=== PATIENT | female | born 1980 | race Caucasian/White ===

== ENCOUNTER → 2016-09-09 | Outpatient (CLI) | payer OTHER ==
--- NOTE | 2016-09-09 09:58 | MM ---
Reason for exam: screening (asymptomatic). Baseline mammogram. History: Patient history of other cancer. Family history of breast cancer in maternal aunt at age 50. Took hormonal contraceptives beginning at age 18. Physical Findings: Nurse did not find any significant physical abnormalities on exam. MG Screening Mammo w CAD Bilateral CC and MLO view(s) were taken. The breast tissue is heterogeneously dense. This may lower the sensitivity of mammography. Finding: There are typically benign round calcifications in the left breast. Asymmetric breast tissue in the left breast. There is no discrete abnormality. These results were verbally communicated with the patient and result sheet given to the patient on 09/09/16. ASSESSMENT: Benign, BI-RAD 2 RECOMMENDATION: Routine screening mammogram of both breasts at age 41.
== END | disposition home or self-care (01) ==
LOC: RADMAMWWP 08:35
PROVIDERS: ATTEND Obstetrics & Gynecology
DX: Z12.31 Encounter for screening mammogram for malignant neoplasm of breast (principal); Z80.3 Family history of malignant neoplasm of breast

== ENCOUNTER → 2016-10-28 | Outpatient (CLI) | payer OTHER ==
--- NOTE | 2016-10-28 13:53 | US ---
EXAMINATION TYPE: US thyroid st tissue head/neck DATE OF EXAM: 10/28/2016 COMPARISON: 04/26/2016 CLINICAL HISTORY: C73 MALIGNANT NEOPLASM THYROID GLAND; Left thyroidectomy 2016 GLAND SIZE: Right Lobe: 4.6 x 1.7 x 1.2 cm Overall Parenchyma: homogenous Left Lobe: Possible residual tissue as noted by radiologist on prior US = 2.6 x 0.6 x 0.5 cm Isthmus Thickness: 0.3 cm NODULES RIGHT: # of nodules measured on right: 0 LEFT: # of nodules measured on left: 0 ISTHMUS: # of nodules measured in the isthmus: 0 Bilateral neck scanned, no evidence of lymphadenopathy. IMPRESSION: Intermediate area of echogenicity along the left thyroid bed has a somewhat planar appearance and may be related to indeterminate soft tissue rather than residual thyroid tissue or mass. Given the patie nt's history recommend CT of the neck with contrast.
== END | disposition home or self-care (01) ==
LOC: RADUSWWP 12:14
PROVIDERS: ATTEND Internal Medicine Endocrinology, Diabetes & Metabolism
DX: E07.89 Other specified disorders of thyroid (principal); C73 Malignant neoplasm of thyroid gland
CPT/HCPCS: 76536; 84443

== ENCOUNTER → 2017-09-24 | Outpatient (CLI) | payer OTHER ==
--- NOTE | 2017-09-24 17:33 | US ---
EXAMINATION TYPE: US thyroid st tissue head/neck DATE OF EXAM: 09/24/2017 COMPARISON: 10/28/2016 CLINICAL HISTORY: Z85.850,R52 NECK PAIN,HX THYROID CA. Left thyroidectomy 1 year ago, pain on the lef t neck x 1 month, more so at clavicle, no palp I assessed the left side of neck at area of pain and saw no residual tissue at left thyroid bed and n o abnormality noted supraclavicular. Previous imaging believed residual tissue was on the left and Dr Giordano attempted bx in office but unabl e to retrieve thyroid cells on potential residual tissue IMPRESSION: The left side of the neck was scanned and no residual thyroid tissue identified. This pa tient has had a left thyroid lobectomy. No adverse change compared to old exam.
== END | disposition home or self-care (01) ==
LOC: RADUSWWP 16:54
PROVIDERS: ATTEND Family Medicine
DX: R52 Pain, unspecified (principal); Z98.890 Other specified postprocedural states; Z85.850 Personal history of malignant neoplasm of thyroid
CPT/HCPCS: 76536

== ENCOUNTER → 2017-10-31 | Outpatient (CLI) | payer OTHER ==
--- NOTE | 2017-10-31 17:47 | XR ---
EXAMINATION TYPE: XR cervical spine comp DATE OF EXAM: 10/31/2017 COMPARISON: NONE HISTORY: Clavicle pain TECHNIQUE: 5 views FINDINGS: There is mild straightening of the upper cervical spine. Disc spaces are normal. Posterior elements are intact. Neural foramina appear widely patent. Atlantoaxial facet joint is normal. There are no cervical ribs. IMPRESSION: Negative cervical spine exam.
--- NOTE | 2017-10-31 17:48 | XR ---
EXAMINATION TYPE: XR chest 2V DATE OF EXAM: 10/31/2017 COMPARISON: NONE HISTORY: Clavicle pain TECHNIQUE: Frontal and lateral views of the chest are obtained. FINDINGS: Heart and mediastinum are normal. Lungs are clear. Diaphragm is normal. Bony thorax appear s normal. IMPRESSION: Normal chest
== END | disposition home or self-care (01) ==
LOC: RADXRMAIN 17:05
PROVIDERS: ATTEND Family Medicine
DX: R07.89 Other chest pain (principal); M54.2 Cervicalgia
CPT/HCPCS: 71046; 72050

== ENCOUNTER → 2018-04-24 | Outpatient (CLI) | payer OTHER ==
--- NOTE | 2018-04-24 09:32 | US ---
EXAMINATION TYPE: US thyroid st tissue head/neck DATE OF EXAM: 04/24/2018 COMPARISON: US CLINICAL HISTORY: C73 MALIGNANT NEOPLASM OF THYROID GLAND. H/O thyroid CA left side with left thyroid ectomy GLAND SIZE: Right Lobe: 3.9 x 1.4 x 2.0 cm Overall Parenchyma: homogenous Isthmus Thickness: 0.3 cm NODULES RIGHT: # of nodules measured on right: 1 1. 0.4 X 0.3 x 0.3 cm hypoechoic solid nodule at the mid pole with poorly defined margins; This no dule is wider than tall and shows intranodular vascularity. Prior size: Not visualized on prior Bilateral neck scanned, no evidence of lymphadenopathy, normal appearing lymph node right lateral nec k. Small right thyroid nodule, left thyroid bed wnl. IMPRESSION: Solitary subcentimeter solid right thyroid nodule in this patient with a left thyroidectomy. No left- sided local adenopathy. Nonenlarged 4 mm short axis lymph node is seen adjacent to the right lobe of the thyroid gland.
== END ==
LOC: RADUSWWP 07:55
PROVIDERS: ATTEND Internal Medicine Endocrinology, Diabetes & Metabolism
DX: C73 Malignant neoplasm of thyroid gland (principal); Z90.89 Acquired absence of other organs; R59.0 Localized enlarged lymph nodes
CPT/HCPCS: 36415; 76536; 84443

== ENCOUNTER → 2018-10-27 | Outpatient (CLI) | payer OTHER | END | disposition home or self-care (01) | LOC: LABWHC1 11:16 | PROVIDERS: ATTEND Internal Medicine Endocrinology, Diabetes & Metabolism | DX: C73 Malignant neoplasm of thyroid gland (principal) | CPT/HCPCS: 36415; 84443 ==

== ENCOUNTER → 2018-10-27 | Outpatient (CLI) | payer OTHER ==
--- NOTE | 2018-10-27 11:30 | US ---
EXAMINATION TYPE: US thyroid st tissue head/neck DATE OF EXAM: 10/27/2018 COMPARISON: Multiple ultrasounds. Last one on 04/24/18 CLINICAL HISTORY: C73 malig neoplasm of the thyroid. GLAND SIZE: Right Lobe: 4.1 x 1.5 x 1.4 cm Overall Parenchyma: homogenous Left Lobe: Surgically absent NODULES RIGHT: # of nodules measured on right: 1 1. 0.4 X 0.3 x 0.3 cm hypoechoic solid nodule at the mid pole with poorly defined margins; . This nodule is wider than tall and shows intranodular vascularity. Prior size: 0.4 X 0.3 x 0.3 cm LEFT: # of nodules measured on left: 0 ISTHMUS: # of nodules measured in the isthmus: 0 Bilateral neck scanned, no evidence of lymphadenopathy. IMPRESSION: Stable solitary 4 mm right thyroid nodule. Surgical absence of the left thyroid lobe.
== END | disposition home or self-care (01) ==
LOC: RADUSWWP 10:57
PROVIDERS: ATTEND Internal Medicine Endocrinology, Diabetes & Metabolism
DX: C73 Malignant neoplasm of thyroid gland (principal); E04.1 Nontoxic single thyroid nodule; E89.0 Postprocedural hypothyroidism
CPT/HCPCS: 76536

== ENCOUNTER → 2019-11-01 | Outpatient (CLI) | payer OTHER ==
--- NOTE | 2019-11-01 10:40 | US ---
EXAMINATION TYPE: US thyroid st tissue head/neck DATE OF EXAM: 11/01/2019 COMPARISON: NONE CLINICAL HISTORY: 39-year-old female C73 Malignant neoplasm of thyroid. Follow up exam TECHNIQUE: Multiple sonographic images of the thyroid gland are obtained. FINDINGS: GLAND SIZE: Right Lobe: 4.9 x 1.6 x 1.6 cm Overall Parenchyma: homogenous Left Lobe: Surgically absent Isthmus Thickness: 0.4 cm NODULES RIGHT: # of nodules measured on right: 0 - unable to replicate 4mm lesion noted on previous exam. LEFT: None, thyroidectomy due to malignant neoplasm ISTHMUS: # of nodules measured in the isthmus: 0 Bilateral neck scanned, no evidence of lymphadenopathy. IMPRESSION: 1. Status post left thyroidectomy. 2. The previous 4 mm right lobe nodule is no longer identified.
== END | disposition home or self-care (01) ==
LOC: RADUSWWP 07:42
PROVIDERS: ATTEND Internal Medicine Endocrinology, Diabetes & Metabolism
DX: E89.0 Postprocedural hypothyroidism (principal); C73 Malignant neoplasm of thyroid gland
CPT/HCPCS: 36415; 76536; 84443

== ENCOUNTER → 2020-07-19 | Outpatient (CLI) | payer OTHER ==
--- NOTE | 2020-07-19 23:00 | NM ---
EXAMINATION TYPE: NM bone scan whole body DATE OF EXAM: 07/19/2020 COMPARISON: NONE HISTORY: Low back pain, myalgia, muscle spasm, intervertebral disc degeneration, history of thyroid c ancer, lumbar stiffness, and status post laminectomy and discectomy L5-S1 2013. Delayed whole-body scanning was performed following the injection of 23.5 mCi Tc 99m MDP. Images acq uired 3 hours post injection. Whole body images obtained in anterior and posterior projection. Additi onal images of the abdomen and portion of pelvis focus and lumbar spine performed in multiple project ions. FINDINGS: There is mild increased radiotracer uptake involving the region of the L5 vertebra lumbosacral juncti on versus more superior lumbar levels. Clinical correlation and correlation with plain films and poss ibly additional imaging advised. Finding likely product of prior surgery at this level in the past an d possible shows associated degenerative change or heterotopic ossification. No additional areas of a bnormal increased radiotracer uptake. Mild symmetric uptake bilateral breast tissue could be physiologic. Correlate clinically. IMPRESSION: As above.
== END ==
LOC: RADNMMAIN 11:34
PROVIDERS: ATTEND Orthopaedic Surgery Orthopaedic Surgery of the Spine
DX: M54.5 Low back pain (principal); Z85.850 Personal history of malignant neoplasm of thyroid
CPT/HCPCS: 78306; A9503

== ENCOUNTER → 2020-12-12 | Outpatient (CLI) | payer OTHER ==
[2020-12-12 21:05] LABS: T4, Free (Free Thyroxine) 1.2 ng/dL (0.80-1.80)
== END | disposition home or self-care (01) ==
LOC: LABWHC1 07:38
PROVIDERS: ATTEND Internal Medicine Endocrinology, Diabetes & Metabolism
DX: C73 Malignant neoplasm of thyroid gland (principal)
CPT/HCPCS: 36415; 84439; 84443

== ENCOUNTER → 2020-12-14 | Outpatient (CLI) | payer OTHER ==
--- NOTE | 2020-12-14 10:10 | US ---
EXAMINATION TYPE: US thyroid st tissue head/neck DATE OF EXAM: 12/14/2020 COMPARISON: 11/01/2019 CLINICAL HISTORY: 40-year-old female C73 MALIGNANT NEOPLASM OF THYROID GLAND. Left thyroid removed GLAND SIZE: Right Lobe: 5.6 x 1.4 x 1.8 cm Overall Parenchyma: homogenous Left Lobe: Surgically absent Isthmus Thickness: .2 cm NODULES RIGHT: # of nodules measured on right: 0 LEFT: # of nodules measured on left: 0 ISTHMUS: # of nodules measured in the isthmus:0 Bilateral neck scanned, no evidence of lymphadenopathy. IMPRESSION: Status post left thyroidectomy. No abnormal or recurrent tissue within the left thyroidectomy bed. No nodule on the right.
== END | disposition home or self-care (01) ==
LOC: RADUSWWP 07:37
PROVIDERS: ATTEND Internal Medicine Endocrinology, Diabetes & Metabolism
DX: Z90.89 Acquired absence of other organs (principal)
CPT/HCPCS: 76536

== ENCOUNTER → 2022-01-29 | Outpatient (CLI) | payer OTHER | END | disposition home or self-care (01) | LOC: LABWHC1 08:05 | PROVIDERS: ATTEND Internal Medicine Endocrinology, Diabetes & Metabolism | DX: C73 Malignant neoplasm of thyroid gland (principal) | CPT/HCPCS: 36415; 84443 ==

== ENCOUNTER → 2022-02-18 | Outpatient (CLI) | payer OTHER ==
--- NOTE | 2022-02-18 09:26 | MM ---
Reason for Exam: Clinical finding. Last screening mammogram was performed 6 month(s) ago. Patient History: Menarche at age 14. First Full-Term at age 24. Other cancer. Hormonal Contraceptives, from age 18 until age 28. Maternal aunt had breast cancer, age 50. Risk Values: Steff 5 year model risk: 0.5%. NCI Lifetime model risk: 9.0%. Prior Study Comparison: 09/09/2016 Bilateral Screening Mammogram, [facility]. 08/23/2021 Bilateral Screening Mammogram, [facility]. Tissue Density: Right: The breast tissue is heterogeneously dense. This may lower the sensitivity of mammography. Findings: Analyzed By CAD. No suspicious masses calcifications or distortions. Overall Assessment: Negative, BI-RAD 1 Management: Screening Mammogram of both breasts in 1 year. A clinical breast exam by your physician is recommended on an annual basis and results should be correlated with mammographic findings. This exam should not preclude additional follow-up of suspicious palpable abnormalities. Results were given to the patient verbally at the time of exam. Electronically signed and approved by: Christiano Alvarez DO
--- NOTE | 2022-02-18 09:46 | USB ---
Reason for Exam: Clinical finding. Patient History: Menarche at age 14. First Full-Term at age 24. Other cancer. Hormonal Contraceptives, from age 18 until age 28. Maternal aunt had breast cancer, age 50. Risk Values: Steff 5 year model risk: 0.5%. NCI Lifetime model risk: 9.0%. Technique: Method: Targeted. Prior Study Comparison: 09/09/2016 Bilateral Screening Mammogram, [facility]. 08/23/2021 Bilateral Screening Mammogram, [facility]. Findings: The lateral section of the breast of the right breast and the axilla of the right breast were scanned. A complete US of all four quadrants of the breast and retro-areolar region were reviewed. No solid or cystic masses are identified.. Anechoic cysts are seen at 9:00 measuring up to 2.2 cm as well as 10:00 5 cm from the nipple measuring up to 4.2 cm. There is posterior acoustic enhancement. Minimal thin septation seen in both cysts.A complete US of all four quadrants of the breast and retro-areolar region were reviewed. No solid or cystic masses are identified.. Anechoic cysts are seen at 9:00 measuring up to 2.2 cm as well as 10:00 5 cm from the nipple measuring up to 4.2 cm. There is posterior acoustic enhancement. Minimal thin septation seen in both cysts. These are not well visualized on mammogram. Overall Assessment: Benign, BI-RAD 2 Management: Clinical Management of the right breast in 1 year. Consider clinical aspiration as clinically needed. A clinical breast exam by your physician is recommended on an annual basis and results should be correlated with mammographic findings. Electronically signed and approved by: Christiano Alvarez DO
== END | disposition home or self-care (01) ==
LOC: RADMAMWWP 09:00
PROVIDERS: ATTEND Family Medicine
DX: R92.8 Other abnormal and inconclusive findings on diagnostic imaging of breast (principal); Z80.3 Family history of malignant neoplasm of breast
CPT/HCPCS: 77061; 77065

== ENCOUNTER → 2022-02-25 | Outpatient (CLI) | payer OTHER ==
[2022-02-25 09:23] VITALS: BP 130/83; PULSE 74; RESP 16; TEMP 98.7
--- NOTE | 2022-02-25 10:15 | P.GSHP ---
History of Present Illness H&P Date: 02/25/22 Chief Complaint: Pain in the right breast Monika is a 41 year old white female seen in consultation for Dr Jacobo regarding right breast pain. She had a bilateral mammogram in August 2021 which was BIRAD 1. He had a repeat right breast mammogram in as well as right breast ultrasound. The ultrasound did reveal 2 cystic lesions one at 9:00 measuring 2.2 cm as well as one at 10:00 measuring 4.2 cm. The mammogram did not show any specific lesions of concern in the overall assessment was benign BIRADS 2. The patient continues to have right axillary pain and shooting pain from the right nipple towards the axilla. The squeezing sensation in her arm has resolv ed. She had left arm pain in October 2021 which was squeezing in nature. She was treated by her cuff knitter. and was given a steriod taper and flexerol, this seemed to help. She then was seen in [place] at [facility] for tachycardia. A full work up was done which was negative. She then had pain extending into her axilla. She was also seen by chiropractor. She saw Dr. Chavez and told him the pain is now extending into her side, she was started on lyrica and has decreased pain but it is still present. She is not complaining of any pain or discomfort comfort lungs masses or nodules in the left breast. She has not felt any lumps masses or nodules in the right breast. She is not complaining of any nipple discharge. The pain at this time is located most specifically in the right chest wall/lateral axilla. This has been for about 2 months. The pain seems to start in the lateral breast/chest wall and radiates under her arm and towards the nipple. The pain is achy in nature and is constant although more pronounced at certain times. She does not know what exacerbates the pain. Her pain was worse the first day of her period. The patient has had no recent trauma, infection, or injections in either arm. She also had a chest CT in [place] which she was told was negative. Caffeine: 1 cup/dauy nicotine: none chocolate: occasional BCP: used in teens until 22 hormones: none periods: irregular Family History: patient: thyroid cancer; 2017; partial thyroid resection; no radiation maternal aunt: breast cancer father: mechanical valve Hormonal History: menarche: 15 M1 first live : 24, breast fed: yes periods irregular LMP February 17-2021 Wounds: Negative control in her teens Surgical History: Tubal ligation Left thyroid lobectomy Appendectomy L2 laminectomy D&C Medical History; as above Social history: Nicotine: Negative Alcohol: Occasional Drugs: Negative - Constitutional Constitutional: Denies chills, Denies fever - EENT Eyes: denies blurred vision, denies pain Ears: deny: decreased hearing, tinnitus Ears, nose, mouth and throat: Denies headache, Denies sore throat - Breasts Breasts: bilateral: as per HPI - Cardiovascular Cardiovascular: Reports as per HPI - Respiratory Respiratory: Denies cough, Denies 7 - Gastrointestinal Gastrointestinal: Reports constipation, Denies abdominal pain, Denies diarrhea, Denies nausea, Denies vomiting - Genitourinary (Female) Genitourinary: Denies dysuria, Denies hematuria - Menstruation Menstruation: Reports cycle variable - Musculoskeletal Musculoskeletal: Reports as per HPI - Integumentary Integumentary: Denies pruritus, Denies rash - Neurological Neurological: Denies numbness, Denies weakness - Psychiatric Psychiatric: Denies anxiety, Denies depression - Endocrine Endocrine: Reports as per HPI - Hematologic/Lymphatic Comment: leiden factor 5 diefiency; has not done anything during surgeries - Allergic/Immunologic Allergic/Immunologic: Reports seasonal allergies Past Medical History Past Medical History: Thyroid Disorder Additional Past Medical History / Comment(s): Blood clot disorder - never an issue History of Any Multi-Drug Resistant Organisms: None Reported Past Surgical History: Appendectomy, Tubal Ligation Additional Past Surgical History / Comment(s): d&c, laminectomy Past Anesthesia/Blood Transfusion Reactions: No Reported Reaction Past Psychological History: No Psychological Hx Reported Smoking Status: Never smoker Past Alcohol Use History: None Reported Past Drug Use History: None Reported - Past Family History Father Family Medical History: No Reported History Medications and Allergies Home Medications Medication Instructions Recorded Confirmed Type Pregabalin [Lyrica] 75 mg PO BID 02/25/22 02/25/22 History Allergies Allergy/AdvReac Type Severity Reaction Status Date / Time No Known Allergies Allergy Verified 02/25/22 09:24 Surgical - Exam Vital Signs Temp Pulse Resp BP Pulse Ox 98.7 F 74 16 130/83 98 02/25/22 09:19 02/25/22 09:19 02/25/22 09:19 02/25/22 09:19 02/25/22 09:19 BMI: 35 - General moderate distress - Eyes normal ocular movement - ENT no hearing loss, no congestion - Neck trachea midline - Respiratory normal respiratory effort, clear to auscultation - Cardiovascular Rhythm: regular Heart Sounds: normal: S1, S2 - Abdomen Abdomen: soft, non tender, no guarding, no rigid, no rebound - Integumentary normal turgor - Musculoskeletal normal gait, normal posture - Psychiatric oriented to time, oriented to person, oriented to place, speech is normal, memory intact Breast Exam: BRA: 38C inspection: Bilateral grade 2 ptosis Palpation: Right breast: Multi-positional exam fibrocystic changes no discrete dominant masses palpated. The cyst were not able to be discretely palpated however she does have tenderness in the lateral aspect of her right breast which seems to be a trigger point for pain extending into the area of the axilla Right axilla: No adenopathy of concern Left breast: Multi-positional exam fibrocystic changes no discrete dominant masses or nodules of concern, no areas of pain Left axilla: No adenopathy [place] [id number] personally reviewed Assessment and Plan Assessment: Impression: Right breast pain/right axillary pain/seems to be emanating from the area of the right breast laterally which is the area where 2 cysts are identified on ultrasound the largest being 4 cm and the second being approximately 2.2 cm Left breast fibrocystic breast changes Prior history of thyroid cancer Prior history of back surgery Resolved right arm pain/cardiac evaluation done in [place] as well as per Dr. Jacobo Plan: results of chest CT and right arm ultrasound ot be obtained consider cardiac consult aspiration of traumatic right breast cyst Follow-up after cyst aspiration Cc: Dr. Jacobo
== END ==
LOC: WWCWWP 08:58
PROVIDERS: ATTEND Surgery
DX: N60.01 Solitary cyst of right breast (principal); Z85.850 Personal history of malignant neoplasm of thyroid; Z87.39 Personal history of other diseases of the musculoskeletal system and connective tissue

== ENCOUNTER → 2022-03-06 | Day surgery (SDC) | payer OTHER ==
--- NOTE | 2022-03-11 09:13 | USB ---
Risk Values: Steff 5 year model risk: 0.5%. NCI Lifetime model risk: 9.0%. Prior Study Comparison: 09/09/2016 Bilateral Screening Mammogram, [facility]. 08/23/2021 Bilateral Screening Mammogram, [facility]. 02/18/2022 Right MG 3D diag mammo w/cad RT, [facility]. Pathology Description: Location: 10 o'clock, upper outer quadrant. The ultrasound guided cyst aspiration procedure was explained to the patient. The risks, benefits, alternatives were discussed. An informed consent was then obtained. A time out was performed before the procedure. The patient was placed in supine positioning for imaging and for the procedure. The overlying skin was prepped with ChloraPrep and sterilely draped in usual sterile fashion. 7 ml 1% lidocaine was used as anesthetic into the skin and deeper breast tissue up to area of concern in the right 10:00 o'clock breast, 5 cm from nipple. Under ultrasound guidance, an 12-gauge spinal needle was advanced into the cyst and aspiration yielded 15 cc mL of yellow serous fluid which appears benign. The fluid was labeled and sent for laboratory analysis. Good hemostasis was obtained with direct pressure. The patient tolerated the procedure well without any immediate complication. The patient was discharged to home in stable condition. Impression: Successful ultrasound guided cyst aspiration right breast. Cytology pending. Pathology Results: Result: Benign, Fibrocystic change. RIGHT BREAST, TEN O'CLOCK, ULTRASOUND GUIDED CYST ASPIRATE: Clusters of bland apocrine and ductal epithelial cells in a background of blood with foamy histiocytes consistent with fibrocystic changes. Overall Assessment: Benign Management: Diagnostic Breast Ultrasound of the right breast in 6 months. Electronically signed and approved by: Juwan Garcia D.O.
== END ==
LOC: RADUSWWP 07:40
PROVIDERS: ATTEND Surgery
DX: N60.01 Solitary cyst of right breast (principal)
CPT/HCPCS: 76942; 88108; 88305

== ENCOUNTER → 2022-09-02 | Outpatient (CLI) | payer OTHER | END | disposition home or self-care (01) | LOC: LABWHC1 12:52 | PROVIDERS: ATTEND Internal Medicine Endocrinology, Diabetes & Metabolism | DX: C73 Malignant neoplasm of thyroid gland (principal) | CPT/HCPCS: 36415; 84443 ==

== ENCOUNTER → 2022-12-20 | Outpatient (CLI) | payer OTHER ==
--- NOTE | 2022-12-20 13:22 | US ---
EXAMINATION TYPE: US thyroid st tissue head/neck DATE OF EXAM: 12/20/2022 COMPARISON: Multiple thyroid ultrasounds with most recent 12/14/2020 CLINICAL INDICATION: Female, 42 years old with history of C73 MALIGNANT NEOPLASM OF THYROID GLAND; th yroidectomy lt side 6 years prior GLAND SIZE: Right Lobe: 4.6x4.1x1.1 cm Overall Parenchyma: homogenous Left Lobe: Surgically absent cm Isthmus Thickness: 0.4 cm NODULES RIGHT: # of nodules measured on right: 0 LEFT: # of nodules measured on left: 0 ISTHMUS: # of nodules measured in the isthmus: 0 Bilateral neck scanned, no evidence of lymphadenopathy. IMPRESSION: Status post left thyroidectomy. No abnormal or recurrent tissue within the left thyroidectomy bed. No discrete nodule on the right.
== END | disposition home or self-care (01) ==
LOC: RADUSWWP 12:53
PROVIDERS: ATTEND Internal Medicine Endocrinology, Diabetes & Metabolism
DX: C73 Malignant neoplasm of thyroid gland (principal); Z90.89 Acquired absence of other organs
CPT/HCPCS: 76536

== ENCOUNTER → 2023-03-10 | Outpatient (CLI) | payer OTHER ==
--- NOTE | 2023-03-10 08:17 | MM ---
Reason for Exam: Clinical finding. Last screening mammogram was performed 12 month(s) ago. Patient History: Menarche at age 14. First Full-Term at age 24. Premenopausal. Other cancer. Hormonal Contraceptives, from age 18 until age 28. 03/06/2022, Benign US breast aspiration single RT on the right side. Maternal aunt had breast cancer, age 50. Risk Values: Steff 5 year model risk: 0.5%. NCI Lifetime model risk: 9.0%. Tissue Density: The breast tissue is heterogeneously dense. This may lower the sensitivity of mammography. Findings: Analyzed By CAD. Right breast: Focal asymmetry right breast in the upper aspect on MLO view measuring 2.4 x 2.2 cm. Left breast: No new suspicious masses, calcifications or distortions. Overall Assessment: Incomplete: need additional imaging evaluation, BI-RAD 0 Management: Diagnostic Mammogram of the right breast. Results were given to the patient verbally at the time of exam. Patient should continue monthly self-breast exams. A clinical breast exam by your physician is recommended on an annual basis. This exam should not preclude additional follow-up of suspicious palpable abnormalities. Note on Steff scores and lifetime risk: 1. A Steff score greater than 3% is considered moderate risk. If this is the case, consider specialist referral to assess eligibility for a risk reducing agent. 2. If overall lifetime risk for the development of breast cancer is 20% or higher, the patient may qualify for future screening with alternating mammogram and breast MRI. Electronically signed and approved by: Christiano Alvarez DO
--- NOTE | 2023-03-10 08:21 | USB ---
Reason for Exam: Clinical finding. Patient History: Menarche at age 14. First Full-Term at age 24. Premenopausal. Other cancer. Hormonal Contraceptives, from age 18 until age 28. 03/06/2022, Benign US breast aspiration single RT on the right side. Maternal aunt had breast cancer, age 50. Risk Values: Steff 5 year model risk: 0.5%. NCI Lifetime model risk: 9.0%. Technique: Method: Whole Breast Handheld. Prior Study Comparison: 09/09/2016 Bilateral Screening Mammogram, [facility]. 08/23/2021 Bilateral Screening Mammogram, [facility]. 02/18/2022 Right MG 3D diag mammo w/cad RT, [facility]. 02/18/2022 Right US breast limited RT, [facility]. Findings: The whole breast of the right breast, the axilla of the right breast and the retroareolar of the right breast were scanned. Technique utilized:US breast complete RT Image; Ultrasound imaging of: All 4 quadrants, the retroareolar region and axilla. Simple appearing cysts are present at 2:00 4 cm from the nipple measuring 3 mm, and 5 mm at 3 cm from nipple. Suspected cluster of cysts at 3:00 7 cm from nipple measuring 1.8 x 0.6 cm. Larger anechoic cysts at 9:00 5 cm from nipple measuring up to 8 x 9 x 6 mm and 17 x 18 x 8 mm lastly an area measuring up to 25 x 11 mm is present. Some dilated ducts in the retroareolar region. Overall Assessment: Benign, BI-RAD 2 Management: Screening Mammogram of the right breast in 1 year. Clinical management for patient's pain. A clinical breast exam by your physician is recommended on an annual basis and results should be correlated with mammographic findings. This exam should not preclude additional follow-up of suspicious palpable abnormalities. Results were given to the patient verbally at the time of exam. Electronically signed and approved by: Christiano Alvarez DO
== END | disposition home or self-care (01) ==
LOC: RADMAMWWP 07:02
PROVIDERS: ATTEND Surgery
DX: Z80.3 Family history of malignant neoplasm of breast (principal); N60.01 Solitary cyst of right breast; R92.8 Other abnormal and inconclusive findings on diagnostic imaging of breast
CPT/HCPCS: 77062; 77066

== ENCOUNTER → 2023-04-04 | Outpatient (CLI) | payer OTHER ==
[2023-04-04 14:02] VITALS: BP 121/85; PULSE 87; RESP 17; TEMP 97.9
--- NOTE | 2023-04-04 14:06 | P.PN ---
Subjective Progress Note Date: 04/04/23 Pain in the right breast Monika is a 41 year old white female seen in consultation for Dr Jacobo regarding right breast pain. She had a bilateral mammogram in August 2021 which was BIRAD 1. She had a repeat right breast mammogram on as well as right breast ultrasound. The ultrasound did reveal 2 cystic lesions one at 9:00 measuring 2.2 cm as well as one at 10:00 measuring 4.2 cm. The mammogram did not show any specific lesions of concern and the overall assessment was benign BIRADS 2. The patient continues to have right axillary pain and shooting pain from the right nipple towards the axilla. The squeezing sensation in her arm has resolved. She had left arm pain in October 2021 which was squeezing in nature. 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 and was given a steriod taper and flexerol, this seemed to help. She then was seen in [place] at [facility] for tachycardia. A full work up was done which was negative. She then had pain extending into her axilla. She was also seen by chiropractor. She saw Dr. Chavez and told him the pain is now extending into her side, she was started on lyrica and has decreased pain but it is still present. She is not complaining of any pain or discomfort comfort lumps masses or nodules in the left breast. She has not felt any lumps masses or nodules in the right breast. She is not complaining of any nipple discharge. The pain at this time is located most specifically in the right chest wall/lateral axilla. This has been for about 2 months. The pain seems to start in the lateral breast/chest wall and radiates under her arm and towards the nipple. The pain is achy in nature and is constant although more pronounced at certain times. She does not know what exacerbates the pain. Her pain was worse the first day of her period. The patient has had no recent trauma, infection, or injections in either arm. She also had a chest CT in [place] which she was told was negative. She had a right breast cyst aspirated on 03-06-22. She had a bilateral mammogram performed on 1019 which resulted in an ultrasound of the right breast. On the ultrasound of the right breast she was noted to have clusters of cyst. This was felt to be benign BIRADS 2 and in conjunction with the mammogram repeat mammogram in 1 year was recommended. She does not have left breast pain at this time. She does have right breast discomfort which is persistent. Steff risk evaluation: 5 year: 0.5% NCI lifetime risk 9% The patient has requested genetic testing. We will set her up to see the genetic counselor. Caffeine: 1 cup/day nicotine: none chocolate: occasional BCP: used in teens until 22 hormones: none periods: irregular Family History: patient: thyroid cancer; 2017; partial thyroid resection; no radiation maternal aunt: breast cancer father: mechanical valve Hormonal History: menarche: 15 M1 first live : 24, breast fed: yes periods irregular LMP February 17-2021 Wounds: Negative control in her teens Surgical History: Tubal ligation Left thyroid lobectomy Appendectomy L2 laminectomy D&C Medical History; as above Social history: Nicotine: Negative Alcohol: Occasional Drugs: Negative - Constitutional Constitutional: Denies chills, Denies fever - EENT Eyes: denies blurred vision, denies pain Ears: deny: decreased hearing, tinnitus Ears, nose, mouth and throat: Denies headache, Denies sore throat - Breasts Breasts: bilateral: as per HPI - Cardiovascular Cardiovascular: Reports as per HPI - Respiratory Respiratory: Denies cough - Gastrointestinal Gastrointestinal: Reports constipation, Denies abdominal pain, Denies diarrhea, Denies nausea, Denies vomiting - Genitourinary (Female) Genitourinary: Denies dysuria, Denies hematuria - Menstruation Menstruation: Reports cycle variable - Musculoskeletal Musculoskeletal: Reports as per HPI - Integumentary Integumentary: Denies pruritus, Denies rash - Neurological Neurological: Denies numbness, Denies weakness - Psychiatric Psychiatric: Denies anxiety, Denies depression - Endocrine Endocrine: Reports as per HPI - Hematologic/Lymphatic Comment: leiden factor 5 diefiency; has not done anything during surgeries - Allergic/Immunologic Allergic/Immunologic: Reports seasonal allergies Past Medical History Past Medical History: Thyroid Disorder Additional Past Medical History / Comment(s): Blood clot disorder - never an issue History of Any Multi-Drug Resistant Organisms: None Reported Past Surgical History: Appendectomy, Tubal Ligation Additional Past Surgical History / Comment(s): d&c, laminectomy Past Anesthesia/Blood Transfusion Reactions: No Reported Reaction Past Psychological History: No Psychological Hx Reported Smoking Status: Never smoker Past Alcohol Use History: None Reported Past Drug Use History: None Reported - Past Family History Father Family Medical History: No Reported History Medications and Allergies Home Medications Medication Instructions Recorded Confirmed Type Pregabalin [Lyrica] 75 mg PO BID 02/25/22 02/25/22 History Allergies Allergy/AdvReac Type Severity Reaction Status Date / Time No Known Allergies Allergy Verified 02/25/22 09:24 Objective - Vital Signs Vital signs: Vital Signs Temp 97.9 F 04/04/23 13:35 Pulse 87 04/04/23 13:35 Resp 17 04/04/23 13:35 BP 121/85 04/04/23 13:35 Pulse Ox 98 04/04/23 13:35 FiO2 Intake & Output 04/03/23 04/04/23 04/04/23 18:59 06:59 18:59 Weight 102.058 kg - Constitutional General appearance: Present: cooperative - EENT ENT: Present: hearing grossly normal - Neck Neck: Present: normal ROM - Respiratory Respiratory: bilateral: CTA - Cardiovascular Heart sounds: normal: S1, S2 - Integumentary Integumentary: Present: normal turgor - Musculoskeletal Musculoskeletal: Present: gait normal - Psychiatric Psychiatric: Present: A&O x's 3, appropriate affect, intact judgment & insight - Additional findings Additional findings: Breast Exam: BRA: 38C inspection: Bilateral grade 2 ptosis Palpation: Right breast: Multi-positional exam fibrocystic changes no discrete dominant masses palpated. The cyst were not able to be discretely palpated however she does have tenderness in the lateral aspect of her right breast Right axilla: No adenopathy of concern Left breast: Multi-positional exam fibrocystic changes no discrete dominant masses or nodules of concern, no areas of pain Left axilla: No adenopathy of concern Assessment and Plan Assessment: Impression: Right breast pain/right axillary pain/seems to be emanating from the area of the right breast laterally Left breast fibrocystic breast changes Prior history of thyroid cancer Prior history of back surgery Resolved right arm pain/cardiac evaluation done in [place] as well as per Dr. Jacobo Plan: following with DR. Gracia stop caffeine/primrose oil bilateral mammogram in 1 year and appointment in 6 months Patient would like to have genetic testing/we will set her up to see genetic counselor Cc: Dr. Jacobo
== END ==
LOC: WWCWWP 12:50
PROVIDERS: ATTEND Surgery
DX: N60.12 Diffuse cystic mastopathy of left breast (principal); N64.4 Mastodynia; E07.9 Disorder of thyroid, unspecified; Z85.850 Personal history of malignant neoplasm of thyroid; Z90.49 Acquired absence of other specified parts of digestive tract; Z80.3 Family history of malignant neoplasm of breast

== ENCOUNTER → 2023-09-23 | Outpatient (CLI) | payer OTHER ==
--- NOTE | 2023-09-23 17:33 | US ---
EXAMINATION TYPE: US thyroid st tissue head/neck DATE OF EXAM: 09/23/2023 COMPARISON: NONE CLINICAL INDICATION: Female, 43 years old with history of C73 MALIGNANT NEOPLASM OF THYROID GLAND; Le ft thyroid remove CA GLAND SIZE: Right Lobe: 5.2 x 1.2 x 1.7 cm Overall Parenchyma: homogeneous Left Lobe: Surgically absent Isthmus Thickness: .2 cm NODULES RIGHT: # of nodules measured on right: 0 LEFT: # of nodules measured on left: 0 ISTHMUS: # of nodules measured in the isthmus: 0 Bilateral neck scanned, no evidence of lymphadenopathy. IMPRESSION: 1. No evidence for current nodule. 2. Surgically absent left gland. No suspicious tissue or lymph nodes.
== END | disposition home or self-care (01) ==
LOC: RADUSWWP 16:23
PROVIDERS: ATTEND Internal Medicine Endocrinology, Diabetes & Metabolism
DX: C73 Malignant neoplasm of thyroid gland (principal); Z90.89 Acquired absence of other organs
CPT/HCPCS: 36415; 76536; 84443

== ENCOUNTER → 2024-03-12 | Outpatient (CLI) | payer BC ==
--- NOTE | 2024-03-15 13:22 | MM ---
Reason for Exam: Screening (asymptomatic). Last screening mammogram was performed 12 month(s) ago. Patient History: Menarche at age 14. First Full-Term at age 24. Premenopausal. Hormonal Contraceptives, from age 18 until age 28. 03/06/2022, Benign US breast aspiration single RT on the right side. Maternal aunt had breast cancer, age 50. Last menstrual period: 01/18/2024 Risk Values: Steff 5 year model risk: 0.6%. NCI Lifetime model risk: 8.9%. Prior Study Comparison: 08/23/2021 Bilateral Screening Mammogram, [facility]. 02/18/2022 Right MG 3D diag mammo w/cad RT, [facility]. 03/10/2023 Bilateral MG 3D diag mammo w/cad JATINDER, [facility]. Tissue Density: The breasts are heterogeneously dense, which may obscure small masses. Findings: Analyzed By CAD. Right breast: There is no suspicious group of microcalcifications or new suspicious mass. Left breast: There is no suspicious group of microcalcifications or new suspicious mass. Overall Assessment: Negative, BI-RAD 1 Management: Screening Mammogram of both breasts in [address] [facility] will attempt to contact patient to return for supplemental views and ultrasound if indicated. Patient should continue monthly self-breast exams. A clinical breast exam by your physician is recommended on an annual basis. This exam should not preclude additional follow-up of suspicious palpable abnormalities. Note on Steff scores and lifetime risk: 1. A Steff score greater than 3% is considered moderate risk. If this is the case, consider specialist referral to assess eligibility for a risk reducing agent. 2. If overall lifetime risk for the development of breast cancer is 20% or higher, the patient may qualify for future screening with alternating mammogram and breast MRI. [facility], , 03/15/2024 1:18 PM. Electronically signed and approved by: Christiano Alvarez DO
== END | disposition home or self-care (01) ==
LOC: RADMAMWWP 09:06
PROVIDERS: ATTEND Surgery
CPT/HCPCS: 77063; 77067

== ENCOUNTER → 2024-05-05 | Outpatient (CLI) | payer BC ==
--- NOTE | 2024-05-05 13:54 | XR ---
EXAMINATION TYPE: XR chest 2V DATE OF EXAM: 05/05/2024 1:41 PM COMPARISON: 10/31/17 CLINICAL INDICATION: Female, 43 years old with history of COUGH R05.9, TECHNIQUE: Frontal and lateral views of the chest are obtained. FINDINGS: There is no focal air space opacity, pleural effusion, or pneumothorax seen. The cardiac silhouette size is within normal limits. The osseous structures are intact. IMPRESSION: No acute cardiopulmonary process. [facility], , 05/05/2024 1:51 PM
== END | disposition home or self-care (01) ==
LOC: RADXRMAIN 13:31
PROVIDERS: ATTEND Family Medicine
DX: R05.9 Cough, unspecified (principal)
CPT/HCPCS: 71046